=== PATIENT | female | born 1965 | race Two or more races ===

== ENCOUNTER 2021-02-19 13:37 | Emergency (ER) | payer MEDICARE, SELFPAY ==
[2021-02-19 14:06] VITALS: BP 119/80; PULSE 87; RESP 18; TEMP 36.8; O2SAT 98; BMI 37.8
--- NOTE | 2021-02-19 16:00 | ED_ITS ---
HPI - General Adult General Chief complaint: Back Pain/Injury Stated complaint: BACK PAIN DOWN TO TOES Time Seen by Provider: 02/19/21 15:55 Source: patient Mode of arrival: ambulatory Limitations: no limitations History of Present Illness HPI narrative: 55-year-old female is here today for complaining of right gluteus pain. Patient reports that the pain radiates to her lower leg. Patient denies any urinary or bowel incontinence. Patient denies any injury. Patient reports that she had flare-ups like that in the past. Reports that she has been taking ibuprofen and is not been helpful. Patient reports that she had cortisone shots in the past. Has a appointment with her PCP next week and is unable to wait till then for some pain management. Patient denies any other symptoms Onset (ago): day(s) Location: buttocks and right Radiation: extremity Severity: moderate Quality: aching Pain Consistency: intermittent Related Data Previous Rx's Medication Instructions Recorded cyclobenzaprine 10 mg tablet 10 mg PO BID PRN #20 tab 02/19/21 Allergies Allergy/AdvReac Type Severity Reaction Status Date / Time No Known Allergies Allergy Verified 02/19/21 14:05 Review of Systems Review of Systems: Constitutional : No Weight loss, No Fever, No Chills, No Night Sweats, No Fatigue, No Malaise ENT/Mouth : No Hearing loss, No Ear Pain, No Nasal Congestion, No Sinus Pain, No Hoarseness, No sore throat, No Rhinorrhea, No Swallowing Difficulty Eyes: No Eye Pain, No Swelling, No Redness, No Foreign Body, No Discharge, No Vision Changes Cardiovascular : No Chest Pain, No SOB, No Dyspnea on Exertion, No Orthopnea, No Edema, No Palpitations Respiratory : No Cough, No Sputum, No Wheezing, No Smoke Exposure, No Dyspnea Gastrointestinal : No Nausea, No Vomiting, No Diarrhea, No Constipation, No abdominal Pain, No Hematochezia, No Melena Genitourinary : no irregular bleeding, No Dysuria, No Urinary Frequency, No Hematuria, No Urinary Incontinence, No Urgency, No Flank Pain, No Urinary Flow Changes, No Hesitancy Musculoskeletal : joint pain right hip, No Myalgias, No Joint Swelling Skin : No Skin Lesions, No rash Neuro : No Weakness, No Numbness, No Paresthesias, No Loss of Consciousness, No Dizziness, No Headache Psych : No Anxiety/Panic, No Depression, No SI/HI/AH/VH, No Social Issues, Yes all other systems are reviewed and are negative PMFSH Past Medical History Medical History (Updated 02/19/21 @ 16:44 by Renee Martin [facility]) delivery delivered Surgical History (Updated 02/19/21 @ 14:07 by Marlene Pereira) Hx of cholecystectomy Social History Social History Advance Directives: No Advance Directives Information Provided: No Physical Exam Vital Signs: Vital Signs: Last Vital Signs Temp 98.3 F 02/19/21 14:06 Pulse 87 02/19/21 14:06 Resp 18 02/19/21 14:06 BP 119/80 02/19/21 14:06 Pulse Ox 98 02/19/21 14:06 Body Mass Index 37.8 Const: General: healthy appearing, no acute distress and well developed Nutritional Appearance: well nourished Orientation/consciousness: patient oriented x3 HENMT: Head: Yes normal to inspection, Yes normocephalic and Yes atraumatic Face and sinus: Yes normal facial exam Mouth: Normal oral and palatal mucosa present Throat: Yes posterior oropharynx normal, Yes tonsils normal and Yes uvula midline Eyes: General: appearance normal, both eyes and all related structures Neck: Neck: Yes normal visual inspection, Yes full ROM and Yes trachea midline Thyroid: Thyroid normal Resp: Effort & Inspection: normal respiratory effort, able to speak in complete sentences, no tracheal deviation and symmetric chest movement Auscultation: clear to auscultation bilaterally Cardio: Jugular venous distension: no JVD Rate: regular rate Rhythm: regular rhythm Heart sounds: S1 normal heart sound present, S2 normal heart sound present, no gallops and no murmurs GI: Inspection: Yes normal to inspection and No distended Palpation (GI): Soft to palpation, not firm, nontender and No hepatosplenomegaly present Auscultation: normal bowel sounds : General: Yes no CVA tenderness Back/Spine/Pelvis: Back: no CVA tenderness Cervical Spine: normal cervical lordosis Thoracic/Lumbar Spine: thoracic and lumbar spine normal to inspection and paraspinal muscle tenderness on the right Sacroiliac joints: on the right nontender Skin: General skin exam: elasticity normal, turgor normal and dry skin Neuro: General: patient oriented x3 Psych: Appearance: grossly normal Mental Status: mental status grossly normal Speech and movement: Normal speech and movement present Affect: normal affect Attitude: cooperative Thought process: Normal thought process present Thought content: Normal thought content present Insight: Good insight present (Psych) Judgement: Good judgement present (Psych) Course Course Course Narrative: 55-year-old sc female here today for complaining of right gluteal pain that radiates down to her leg. Patient denies any urinary or fecal incontinence. History of this pain for the past couple years. Patient reports that she had cortisone shots in the past. Seeing PCP next week and unable to wait till then for pain management. Patient denies any injuries. Denies any other concerning symptoms. Will medicate her with cyclobenzaprine monitor and sent home if effective to follow-up with pain management center as well as possible physical therapy Reevaluation(s) Reevaluation #1: Patient reports she is feeling much better after her cyclobenzaprine sending her home with script for cyclobenzaprine twice a day, pain management and PCP to follow-up for possible physical therapy Discharge Plan Discharge Clinical Impression: Sciatica Qualifiers: Laterality: right Qualified Code(s): M54.31 - Sciatica, right side Patient Disposition: Home, Self-Care Instructions: Sciatica (ED), Lower Back Exercises (ED) Additional Instructions: You were seen here today for right lower back pain radiating to your leg. You were given muscle relaxer that helped. You will be getting script for muscle relaxer home. Please make sure you do not drink alcohol or drive while taking this medication. You can take ibuprofen as well for pain. Please follow-up with your PCP for possible physical therapy. You will be given phone number to pain management center and you can follow-up with them as well. You may return to emergency department if his symptoms will get worse or if you experience any additional concerning symptoms. Prescriptions: New cyclobenzaprine 10 mg tablet 10 mg PO BID PRN (Reason: muscle spasm) Qty: 20 RF: 0 Interventions: ED Discharge Assessment Last Done: 02/19/21 16:50 Discharge Date/Time: 02/19/21 16:50
[2021-02-19] MEDS: Cyclobenzaprine HCl 10 MG TABLET PO (16:09)
== END 2021-02-19 16:50 | disposition home or self-care (01) ==
PROVIDERS: Emergency Provider Emergency Medicine Emergency Medical Services; PCP Internal Medicine
DX: M54.31 Sciatica, right side (principal); Z79.899 Other long term (current) drug therapy
CPT/HCPCS: 99283

== ENCOUNTER 2022-11-07 08:54 | Outpatient (REF) | payer MEDICARE, SELFPAY ==
--- NOTE | ~2022-11-07 | XR_ITS ---
EXAMINATION: XR BILATERAL KNEE AP, LATERAL VIEW, PATELLAR VIEW BOTH KNEE CLINICAL INFORMATION: Pain COMPARISON: None TECHNIQUE: Upright frontal view of both knees. Lateral and patellar view right knee. FINDINGS: Bones and soft tissues are normal. No fracture or joint effusion. Alignment is anatomic. Joint spaces are well maintained. No abnormal soft tissue calcification. XR/XR knee LT 3V IMPRESSION: Normal knees.
--- NOTE | ~2022-11-07 | XR_ITS ---
EXAMINATION: XR BILATERAL KNEE AP, LATERAL VIEW, PATELLAR VIEW BOTH KNEE CLINICAL INFORMATION: Pain COMPARISON: None TECHNIQUE: Upright frontal view of both knees. Lateral and patellar view right knee. FINDINGS: Bones and soft tissues are normal. No fracture or joint effusion. Alignment is anatomic. Joint spaces are well maintained. No abnormal soft tissue calcification. XR/XR knee RT 3V IMPRESSION: Normal knees.
== END 2022-11-07 08:55 | disposition home or self-care (01) ==
LOC: HO.HOSX 08:54
PROVIDERS: Visit Provider Orthopaedic Surgery
DX: M25.561 Pain in right knee (principal); M25.562 Pain in left knee
CPT/HCPCS: 73562; 99202

== ENCOUNTER 2022-11-07 13:51 | Outpatient (AMB) | payer MEDICARE, SELFPAY ==
--- NOTE | 2022-11-07 14:11 | A.OFFVIS_ITS ---
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 The patient describes her left knee pain as sharp and severe in nature. She did injure her left knee several years ago. She twisted her knee and had acute onset of pain. Since that time her symptoms have gotten worse. She has done physical therapy for 12 weeks over the last 6 months which aggravated her pain. She has also tried Tylenol and anti-inflammatory medicines which gave her minimal relief. She has had injections in the past. The most recent injection gave her only temporary relief. She states that her left knee will give out several times per day. Allergies No Known Allergies Allergy (Verified 11/07/22 14:12) Medication List - Last Reconciled 11/07/22 by Adria Mejía MD lancets (Freeyle Lancets) As directed metformin 500 mg PO QPM tirzepatide (Mounjaro) 5 mg subcut QWEEK [facility] Medical History (Updated 11/07/22 @ 14:55 by Adria Mejía MD) delivery delivered Hx of diabetes mellitus Surgical History (Updated 02/19/21 @ 14:07 by Marlene Pereira) Hx of cholecystectomy Social History (Updated 11/07/22 @ 14:22 by Kyle Bahena) Alcohol intake: current Patient Tobacco Use Status: Former Tobacco user Current occupational status: disabled Physical Exam Vital Signs: BMI result Body Mass Index 37.8 Const Other: Well-nourished well-developed very friendly female awake alert and oriented x3 in no acute distress Extrem Other: Bilateral lower extremity examination shows good capillary refill, no skin lesions noted, normal sensation light touch Bilateral knee examination shows minimal effusions, minimal crepitus with range of motion, tenderness along her medial joint lines, positive Destiny's tests, no instability Results Reviewed Results Reviewed: X-rays of the patient's bilateral knees taken today show mild diffuse joint space narrowing, no acute bony abnormalities Assessment & Plan Assessment & Plan (1) Right knee pain: Code(s): M25.561 - Pain in right knee Plan: Ms. Andrews presents with bilateral knee pains and mechanical symptoms, left greater than right, most likely due to tearing of her medial menisci. Thus, I will send the patient for an MRI of her left knee for further evaluation. I will see her back once the imaging study is completed to discuss the findings and treatment options. She will continue with activity modifications in the meantime. Feel free to call me at any time should questions regarding her orthopedic management arise. Thank you very much for asking me to see this very friendly patient. I spent 22 minutes in reviewing the patient's records and imaging studies, seeing the patient and documenting in the medical record. (2) Left knee pain: Code(s): M25.562 - Pain in left knee Orders: Orders XR knee LT 3V Today M25.562 - Pain in left knee XR knee RT 3V Today M25.561 - Pain in right knee Coding Level of Care Code New Pt Level 2 (71955) Diagnoses Right knee pain M25.561 Left knee pain M25.562
[2022-11-07 14:22] VITALS: BMI 37.8
== END 2022-11-07 14:52 | disposition home or self-care (01) ==
PROVIDERS: PCP Internal Medicine; Visit Provider Orthopaedic Surgery
DX: M25.561 Pain in right knee (principal); M25.562 Pain in left knee
CPT/HCPCS: 99202